=== PATIENT | female | born 2005 | race Caucasian/White ===

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

== ENCOUNTER 2023-01-05 15:32 | Emergency (ER) | payer SELFPAY ==
[~2023-01-05] VITALS: Ht 157.5 cm; Wt 50.1 kg
[2023-01-05] MEDS ORDERED: IBU400 MG PO (16:18)
[2023-01-05 16:20] LABS: BILIRUBIN, URINE NEGATIVE (negative); BLOOD/HGB, URINE TRACE-I (Negative); KETONE, URINE NEGATIVE (Negative); LEUK ESTERASE, URINE MODERATE (negative); NITRITE, URINE NEGATIVE (negative)
[2023-01-05 16:27] LABS: CRYSTALS, URINE NONE SEEN (0-1+); EPITHELIAL CELLS, URINE SQUAMOUS 3+ /lpf (0-1+); RED BLOOD CELLS, URINE 0-1 /hpf (0-5)
[2023-01-05 16:28] LABS: BACTERIA, URINE 1+ /hpf (negative); CASTS, URINE NONE SEEN \\lpf; COLLECTION TYPE, URINE CLEAN CATCH; REFLEX CULTURE, URINE No (No)
[2023-01-05 16:38] VITALS: BP 105/77
== END 2023-01-05 16:39 | disposition home or self-care (01) ==
LOC: ED 15:32
PROVIDERS: Internal Medicine
DX: R07.89 Other chest pain (principal)
CPT/HCPCS: 71046; 81001; 84703; A9270

== ENCOUNTER 2023-11-17 23:11 | Inpatient (IN) | payer OTHER ==
[~2023-11-17 23:11] MED LIST changes: +IBU400 MG PO
[2023-11-17 23:49] LABS: AMNISURE ROM TEST POSITIVE
--- NOTE | 2023-11-19 09:05 | PR ---
[facility] [address] [facility] [place], [place] [address] Signed PP Progress Notes Datetime Report Generated by CPN: 11/19/2023 09:05 SUBJECTIVE: [id number] Pain: Within Normal Limits Nausea/Vomiting: Denies Flatus: Yes Vital Signs: [id number] Vital Signs: Reviewed; Within Normal Limits EXAM: Ongoing Cardiovascular: Normal Respiratory: Normal Abdomen/Uterus: Normal Lochia: Normal Vulva/Perineum: Not Done Breasts: Not Done CVA Tenderness: Normal Extremities: Normal Incision: Not Applicable Progress: Normal IMPRESSION/PLAN/PROCEDURES: [id number] Impression: Normal Progression Other Impression: Post depression Plan: Continue Present Management Procedures: None Progress Notes: Patient without concerns today. She states that she is doing well. Lochia WNL. Nursing. PPD screen positive. Consult obtained last night. Will follow up in 3 days. Denies thoughts of self harm or harming others. Desires D/C home today. Signing Physician: Licha Wall MD Copies: ~ *Electronically Signed* 11/19/23904 LICHA WALL MD PATIENT NAME: ADRIANA BEE PROGRESS NOTE DATE OF : 03 PHYSICIAN: LICHA WALL MD RPT #: [id number] REPORT IS CONFIDENTIAL AND NOT TO BE RELEASED WITHOUT AUTHORIZATION
== END 2023-11-19 17:35 | disposition home or self-care (01) | DRG 807 ==
LOC: FBCO → MS 23:56 → FBCO 11-19 11:11 → MS 11-19 17:35
PROVIDERS: ADMIT Obstetrics & Gynecology; ATTEND Obstetrics & Gynecology
PROC: 10E0XZZ Delivery of Products of Conception, External Approach (ICD-10-PCS; principal; 2023-11-18)
PROC: 0KQM0ZZ Repair Perineum Muscle, Open Approach (ICD-10-PCS; 2023-11-18)
PROC: 3E0R3BZ Introduction of Anesthetic Agent into Spinal Canal, Percutaneous Approach (ICD-10-PCS; 2023-11-18)
PROC: 00HU33Z Insertion of Infusion Device into Spinal Canal, Percutaneous Approach (ICD-10-PCS; 2023-11-18)
PROC: 10907ZC Drainage of Amniotic Fluid, Therapeutic from Products of Conception, Via Natural or Artificial Opening (ICD-10-PCS; 2023-11-18)
DX: O99.344 Other mental disorders complicating childbirth (principal); Z37.0 Single live birth; O70.1 Second degree perineal laceration during delivery; Z3A.39 39 weeks gestation of pregnancy; O69.81X0 Labor and delivery complicated by cord around neck, without compression, not applicable or unspecified; F32.9 Major depressive disorder, single episode, unspecified
CPT/HCPCS: 36415; 80307; 84112; 85027; 86850; 86900; 86901; A9270; J2590; J7121